=== PATIENT | female | born 1955 ===

== ENCOUNTER 2021-03-21 05:24 | Day surgery (SDC) | payer OTHER ==
[~2021-03-21 05:24] MED LIST: AMLODIPINE PO; ATORVASTATIN CA10 MG PO; PLAVIX75 MG PO; VALSARTAN-HCTZ1 EAC4 PO
== END 2021-03-21 17:10 | disposition home or self-care (01) ==
LOC: CIR.AMB 05:24
PROVIDERS: ATTEND Specialist
DX: N84.0 Polyp of corpus uteri (principal); Z20.822 Contact with and (suspected) exposure to COVID-19